=== PATIENT | male | born 1975 | race African-American/Black ===

== ENCOUNTER 2020-04-19 10:12 | Emergency (ER) | payer BC, SELFPAY ==
--- NOTE | 2020-04-19 10:22 | PC.NURSE ---
Attempted to call pt x 3 and does not answer. Message system reports no mailbox has been set up.
[2020-04-19 10:35] VITALS: BP 145/99; PULSE 66; RESP 20; TEMP 37.3; O2SAT 99
--- NOTE | 2020-04-19 11:01 | ED.GENADULT ---
HPI - General Adult General Chief complaint: Upper Respiratory Infection Stated complaint: lost taste/smell and sinus headache Time Seen by Provider: 04/19/20 11:01 Source: patient and RN notes reviewed Mode of arrival: ambulatory Limitations: no limitations History of Present Illness HPI narrative: 44-year-old -[place] male presents with complaints of upper respiratory infection symptoms, facial pain, intermittent cough, and headaches (not the worst of his life) for the past 3 days. Peter reports increase in symptoms over the past 24 hours with the loss of taste and smell and increase rhinorrhea. Mucinex cold and sinus and Ibuprofen (at 09:15 600mg) with little to no relief. Intermittent dry cough without chest congestion. Rhinorrhea and nasal congestion. Exacerbating factors consist of smoke exposure. No high fevers or sweats. No nausea, vomiting, and abdominal pain. Tolerating po intake well. Denies chest pain, coughing up blood, jaw pain, dental pain, foreign body sensation, and rash. The patient reports he have not been diagnosed with COVID-19. The patient reports he is not waiting for the results of a COVID-19 lab test. The patient reports he do not have weakness, myalgia, or fatigue. The patient reports he do not have a worsening cough. Denies chest pain. The patient reports he do not have any diarrhea. Denies recent traveling. Denies concerns for COVID-19 or exposures been home with limited outdoor exposure except for essential household needs and return home. At this time, patient is suspected of having COVID-19. Some parts of this dictation were generated by voice recognition software and may contain typographical and/or grammatical inaccuracies. Related Data Allergies Allergy/AdvReac Type Severity Reaction Status Date / Time Penicillins Allergy Intermediate Hives Verified 04/19/20 10:54 Review of Systems Review of Systems: Narrative: CONSTITUTIONAL: Denies fever, chills, sweats. EYES: Denies visual changes, redness, discharge. ENT: Complains of rhinorrhea, congestion, facial pain and pressure. Denies sore throat, otalgia. CARDIOVASCULAR: Denies chest pain, palpitations, edema. RESPIRATORY: Denies wheezing, dyspnea. Complains of intermittent dry cough. GASTROINTESTINAL: Denies abdominal pain, nausea, vomiting, diarrhea. SKIN: Denies rash or itching. MUSCULOSKELETAL: Denies acute back pain, joint pain, myalgia. NEUROLOGIC: Denies numbness or focal weakness. PSYCHIATRIC: Denies anxiety or depression. Complains of intermittent SAL. All systems reviewed & are unremarkable except as noted in HPI and below. [facility] Past Medical History Medical History (Updated 04/19/20 @ 11:21 by SARA Mathis) Knee pain Surgical History Surgical History (Updated 04/19/20 @ 11:21 by SARA Mathis) History of right knee surgery Patella tendon repair Family History Family History (Updated 04/19/20 @ 11:23 by SARA Mathis) Father Alive and well Mother , September 26, 2019 Cerebrovascular accident Hypertension Heart disease Diabetes mellitus Social History Social History (Updated 04/19/20 @ 11:23 by SARA Mathis) Years smoked: 2 Smoking status: Current every day smoker Tobacco type: cigarettes Second hand tobacco smoke exposure: No Alcohol intake: current Substance use: current Substance use type: marijuana Living arrangements: alone Occupation/Education: occupation Gender identity (if verbalized by the patient): Male Sexual Orientation (if Verbalized by the Patient): Straight or Heterosexual Comments At time of signature, agree with nurse past medical, surgical, social, and family history. There is no relevant family history pertinent to the presenting complaint. Exam Narrative: Exam Narrative: GENERAL: This is a well-nourished, well-developed patient, in no apparent distress. Talks in full sentences and ambulates with steady gait w
== END 2020-04-19 11:22 | disposition home or self-care (01) ==
PROVIDERS: Emergency Provider Nurse Practitioner Family
DX: U07.1 COVID-19 (principal); F17.210 Nicotine dependence, cigarettes, uncomplicated
CPT/HCPCS: 87426; 87804; 99203; C9803; G0463